=== PATIENT | female | born 2000 | race Caucasian/White ===

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

== ENCOUNTER 2019-01-06 16:45 | Emergency (ER) | payer OTHER ==
[2019-01-06] MEDS ORDERED: diphenhydrAMINE 12.5 MG/5 ML UDCUP ONE (16:53)
[2019-01-06] MEDS ORDERED: FAMOTIDINE 20 MG TAB PO ONE (16:55)
[2019-01-06] MEDS ORDERED: diphenhydrAMINE 25 MG CAP PO ONE (16:55)
[2019-01-06] MEDS ORDERED: predniSONE 20 MG TAB PO ONE (16:56)
[2019-01-06] MEDS ORDERED: predniSONE 20 MG TAB ONE (17:01)
--- NOTE | 2019-01-06 17:01 | EDPHY ---
H & P Time Seen by Provider: 01/06/19 16:52 HPI/ROS: CHIEF COMPLAINT: Allergic reaction HISTORY OF PRESENT ILLNESS: The patient is a 18-year-old female who has a history of allergic reactions to nuts. Patient ate cashews approximately 15 min ago. She developed swelling of her throat and tongue. She also feels bumps on the inside of her lips. She has no shortness of breath. No rash. No fevers. Patient not take any medication for her symptoms. The patient has not had allergic reaction for some time. REVIEW OF SYSTEMS: 10 systems were reveiwed and are negative with the exception of the elements mentioned in the history of present illness. Past Medical/Surgical History: Includes allergic reaction Smoking Status: Never smoked Physical Exam: Vitals noted GENERAL: Well-appearing, in no acute distress, alert. HEENT: Eyes normal to inspection, no signs of dehydration. Patient has mild swelling of her uvula. The tongue appears normal. The airway is clear. NECK: Normal, supple. No stridor RESPIRATORY: Clear to auscultation bilaterally, no rales, rhonchi or wheezing. Normal CVS: Regular rate and rhythm, no rubs, murmurs, or gallops. ABDOMEN: Soft, nontender, nondistended, no organomegaly. BACK: Normal to inspection, no CVA tenderness. SKIN: Normal color, no rash, warm, dry. No pallor. EXTREMITIES: No pedal edema, no calf tenderness, no Homans sign or cords, no joint swelling. Normal NEURO/PSYCH: Alert and oriented, normal mood and affect, normal motor sensory exam. Constitutional: Initial Vital Signs Temperature (C) 36.7 C 01/06/19 16:47 Heart Rate 70 01/06/19 16:47 Respiratory Rate 17 01/06/19 16:47 Blood Pressure 139/95 H 01/06/19 16:47 O2 Sat (%) 99 01/06/19 16:47 O2 Delivery Mode Room Air Allergies/Adverse Reactions: peanut Allergy (Verified 01/06/19 16:46) tree nut Allergy (Verified 01/06/19 16:46) Home Medications: Medication Instructions Recorded Famotidine [Pepcid 20 MG (*)] 10 mg PO BID #10 tab 01/06/19 predniSONE 20 mg PO DAILY 4 Days tab 01/06/19 Medical Decision Making ED Course/Re-evaluation: In the emergency department I discussed possible etiologies with the patient. I recommended an IV be placed in she received medication. Patient was adamant she did not want IV. Hence, the patient was given Pepcid 20 mg orally, Benadryl 50 mg orally and prednisone 60 mg orally. Differential Diagnosis: My differential includes but is not limited to allergic reaction, anaphylaxis, anxiety Departure - Departure Disposition: Home, Routine, Self-Care Clinical Impression: Allergic reaction Qualifiers: Encounter type: initial encounter Qualified Code(s): T78.40XA - Allergy, unspecified, initial encounter Condition: Good Instructions: Food Allergy (ED) Additional Instructions: Return with increasing throat swelling, shortness of breath, significant rash or any other concerns. Take your entire course of prednisone. Referrals: Gwendolyn Lobo MD [[facility] [place]] - 5-7 days, call for appt. Prescriptions: Famotidine [Pepcid 20 MG (*)] 10 mg PO BID #10 tab predniSONE 20 mg PO DAILY 4 Days tab
[2019-01-06 18:18] VITALS: BP 105/68
== END 2019-01-06 18:18 | disposition home or self-care (01) ==
DX: T78.40XA Allergy, unspecified, initial encounter (principal)
CPT/HCPCS: J7512